=== PATIENT | female | born 1935 | race Caucasian/White ===

== ENCOUNTER 2017-12-04 12:47 | Inpatient (IN) | payer OTHER, MEDICARE ==
[~2017-12-04] VITALS: Ht 165.1 cm; Wt 106.4 kg
--- NOTE | ~2017-12-04 | CATHLAB ---
[facility] [address] [place] [address] INVASIVE PROCEDURE REPORT Name: REJI EDGAR Room #: 215-P ADM IN M.R.#: [id number] Admission: 12/04/17 Attend Phys: Rizwana Herzog Discharge: Date of : 35 Date of Service: 12/07/17 1653 Report #: [id number] THIS REPORT FOR: //name// APPROVED REPORT Study performed: 12/07/2017 12:54:41 Patient Details Patient Status: In-Patient Room #: The patient is a 82 year-old female Event Personnel Taran Valentino Wiener Packer, Cole Rojas RN, Karen Patton Sandifer, David Monitor Procedures Performed Art Access - R femoral artery* Left Heart Cath w/or w/o Coronaries [id number] [facility] [id number] Initial Mod Sed Same Phys/QHP Gr5y [id number] Hemostasis with Manual pressure Indication Dyspnea, Cardiomyopathy, Chest pain Risk Factors Hypercholesterolemia, Hypertension Procedure Narrative The patient was brought urgently to the Cardiac Catheterization Laboratory and was prepped and draped in a sterile manner. The Right Groin^ was infiltrated with 1% Lidocaine subcutaneous anesthesia. A PINNACLE 4FR Sheath #[id number] sheath was inserted into the RFA^. Coronary angiography was performed using coronary diagnostic catheters. The right coronary system was accessed and visualized with a JR 4 catheter. The left coronary system was accessed and visualized with a JL 4 catheter. The left ventricle was accessed and visualized with a Pigtail catheter. Left ventricular/Aortic Valve gradient assessed via catheter pullback. Left ventriculogram was performed in GUZMAN projection. Hemostasis was obtained with manual pressure following sheath removal without any complications. The patient tolerated the procedure well and there were no complications associated with the procedure. There was no hematoma. Intraoperative Conscious Sedation Sedation start time: 13:40 Case end Time: 14:10 [facility] [place] [address] INVASIVE PROCEDURE REPORT Name: REJI EDGAR Room #: 215-P ADM IN M.R.#: [id number] Admission: 12/04/17 Attend Phys: Rizwana Herzog Discharge: Date of : 35 Date of Service: 12/07/17 1653 Report #: [id number] Fentanyl 50 mcg Versed 1.5 mg Fluoro Time: 1.27 minutes Dose: DAP 02752 cGycm2 314 mGy Contrast Type and Amount: Omnipaque 85 ml Coronary Angiography The patient's coronary anatomy is co- dominant. Diagnostic Cath Left Main Patent vessel, appears angiographically normal. LAD Moderate size caliber vessel, traveling down the anterior wall and wrapping around the apex. Appears angiographically normal. Circumflex Codominant vessel, with no flow-limiting lesions. OM1 Patent vessel, with no flow-limiting lesions. Right Coronary Patent vessel, with no flow-limiting lesions. R PDA Small-caliber vessel, with no flow-limiting lesions. Ramus Patent vessel, with no flow-limiting lesions. Left Ventriculography The left ventricle is mildly dilated in size with decreased contractility. The left ventricular ejection fraction is estimated to be 35-40%. Hemodynamics The aortic pressure is 140/66 mmHg with a mean of 91 mmHg. The left ventricular pressure is 120/10 mmHg with a mean of mmHg. The left ventricular end diastolic pressure is 21 mmHg. Conclusion 1. Nonischemic cardiomyopathy. 2. Patent morongo coronaries, with no flow-limiting lesions. 3. Recommend medical therapy. <ELECTRONICALLY SIGNED> By: Taran Valentino MD 12/07/17 [phone] 52 Taran Valentino MD /INF
--- NOTE | ~2017-12-04 | EKG ---
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 : 1935 Requested By: Dewayne Aggarwal Order Number: [id number] MD: Taran Valentino Measurements Intervals [place] Rate: 71 P: 45 [place]: 189 QRS: 6 QRSD: 179 T: 187 QT: 461 QTc: 502 Interpretive Statements Sinus rhythm LVH with secondary repolarization abnormality nonspecific IVCD, atypical left bundle branch block pattern Compared to ECG 11/15/2009 13:10:57 Left ventricular hypertrophy now present Early repolarization now present Prolonged QT interval now present Electronically Signed On 12-05-2017 11:04:40 CDT by Taran Valentino [email or web address] <ELECTRONICALLY SIGNED> By: Taran Valentino MD 12/05/17 1104 1300 1300 Taran Valentino MD /MYLENE
--- NOTE | ~2017-12-04 | HC ---
[facility] [place] [address] CONSULTATION Name: REJI EDGAR Room #: 215-P [facility] IN M.R.#: [id number] Admission: 12/04/17 Attend Phys: Juvenal Robledo MD Discharge: Date of : 35 Report #: [id number] THIS REPORT FOR: //name// CC: Juvenal Dumont Gabriela DATE OF SERVICE: 12/05/2017 INDICATION: Chest pain and shortness of breath. HISTORY OF PRESENT ILLNESS: This is a pleasant 82-year-old female who [facility] at [facility], presenting with left hand and chest discomfort. For the past several days, she has been very active. In the past, she had issues with the right hand due to carpal tunnel syndrome. She then developed severe pain and numbness in her left hand, unable to open up her fingers. She rested and gradually it improved. However, she developed substernal chest tightness that radiated to the back. She had some dyspnea as well. There is no history of fever, nausea or diarrhea. In the ER, she was given Lasix, but she felt better. Although, the patient reports that this did not increase urination. There is no history of PND or orthopnea. PAST MEDICAL HISTORY: Hypertension, TIA, arthritis. ALLERGIES: CODEINE, PENICILLIN, AND SULFA. MEDICATIONS: Include hydrochlorothiazide, Levoxyl, aspirin and Tylenol. REVIEW OF SYSTEMS: A full 10-point review of systems is performed. Only the pertinent positives and negatives are described in the HPI. PHYSICAL EXAMINATION: VITAL SIGNS: Blood pressure 120/60, heart rate is 65 beats per minute. GENERAL APPEARANCE: A well-developed, well-nourished female, in no acute respiratory distress. HEAD AND EYES: Normocephalic. Sclerae anicteric. ENT: Oral mucosa moist. NECK: Supple. LUNGS: Clear to auscultation. CARDIAC: Regular rate and rhythm, S1 and S2 positive. ABDOMEN: Soft, nontender. Bowel sounds positive. EXTREMITIES: No cyanosis, trace edema. NEUROLOGIC: Alert and oriented x 3 ECG reveals sinus rhythm with a wide complex, may be atypical left bundle branch block. [facility] [address] [place] [address] CONSULTATION Name: REJI EDGAR Room #: 215-P ADM IN M.R.#: [id number] Admission: 12/04/17 Attend Phys: Juvenal Robledo MD Discharge: Date of : 35 Report #: [id number] LABORATORY VALUES: Serial troponin levels are negative x 3. ASSESSMENT AND PLAN: 1. Chest pain syndrome, serial troponin levels are negative. However, the EKG is abnormal, probable atypical left bundle branch block. She has intermittent chest discomfort, may be musculoskeletal versus GI. However, ischemia cannot be ruled out. We will arrange for noninvasive stress testing during this hospitalization. 2. Dyspnea, the etiology is unclear. No evidence for pneumonia on chest x-ray. We will require an echo. 3. Hypertension, continue with hydrochlorothiazide. 4. Edema, continue with the diuretic. Thank you for allowing me to participate in the care of your patient. <ELECTRONICALLY SIGNED> By: Taran Valentino MD 12/06/17 0854 0944 1104 Taran Valentino MD /nt
--- NOTE | ~2017-12-04 | H ---
[facility] [place] [address] HISTORY AND PHYSICAL Name: REJI EDGAR Room #: 215-P ADM IN M.R.#: [id number] Admission: 12/04/17 Attend Phys: Juvenal Robledo MD Discharge: Date of : 35 Report #: [id number] THIS REPORT FOR: //name// CC: Juvenal Dumont Gabriela DATE OF SERVICE: 12/04/2017 CHIEF COMPLAINT: Chest pressure and shortness of breath. HISTORY OF PRESENT ILLNESS: The patient is an 82-year-old female from [facility] area who came to the ER with some chest pressure. She said for the last 3 days, she has been very active, involved in several group activities at the facility, and she has noted symptoms of chest pressure and shortness of breath. She said with walking or just her daily routine, she often felt like she had to gasp or take a deep breath. She said sometimes it was harder sensation. She could not get a deep breath with activity. This also led to some symptoms of some chest pressure. Yesterday, she experienced pain in her left wrist that she felt was radiating up her arm, and she was concerned that she may be having a heart attack and was directed to the Emergency Room. So far, initial troponin was negative and EKG revealed LVH. She does report some chronic wrist pain, may be arthritic in nature, for which she used to take Aleve. Overnight, she said her symptoms have completely resolved, her left wrist pain is much better after one dose of meloxicam. She has no symptoms of shortness of breath after receiving some Lasix. Initial BNP was 500 and near 1100 this morning, although a chest x-ray does not show pulmonary edema. PAST MEDICAL HISTORY: Hypertension, arthritis. History of breast cancer and hypothyroidism. PAST SURGICAL HISTORY: Left mastectomy for breast cancer, right humerus fracture repair, laparoscopic cholecystectomy. FAMILY HISTORY: Noncontributory. SOCIAL HISTORY: No chronic alcohol or tobacco use. ALLERGIES: CODEINE, PENICILLIN AND SULFA. MEDICATIONS: Tylenol, Aleve, aspirin, calcium, hydrochlorothiazide, Levoxyl, B12. REVIEW OF SYSTEMS: She denies headache, chest pain, shortness of breath, headache, chest pain, nausea, vomiting, diarrhea, constipation, dysuria, syncope, falls. [address] [address] HISTORY AND PHYSICAL Name: REJI EDGAR Room #: [address] [place] [address] IN M.R.#: [id number] Admission: 12/04/17 Attend Phys: Juvenal Robledo MD Discharge: Date of : 35 Report #: [id number] OBJECTIVE: VITAL SIGNS: Temperature 36.5, pulse 57, respirations 17, blood pressure 118/48, O2 sat 97% on room air. GENERAL: She is awake and alert, in no distress. HEAD AND NECK: Unremarkable. LUNGS: Clear. HEART: Regular. ABDOMEN: Soft, normoactive bowel sounds. EXTREMITIES: No edema. She has some tenderness at the base of the left thumb and wrist. There is no redness or swelling. NEUROLOGIC: She is alert and oriented. Cranial nerves intact. Global strength intact LABORATORY REVIEW: As mentioned, chest x-ray was clear. Basic chemistry unremarkable. BNP this morning was 1200. Urinalysis negative. ASSESSMENT: 1. Chest pressure. 2. Dyspnea on exertion. 3. Hypokalemia, resolved. 4. Osteoarthritis of the left wrist. PLAN: This does not seem like acute coronary syndrome, and I question whether there could be a degree of diastolic dysfunction given the elevated BNP. Overnight, she received Lasix and said her chest symptoms are resolved. Echocardiogram has been ordered. I have asked Cardiology to review that today. X-ray and uric acid to study the left wrist. She may need adjustment in her diuretic regimen. If stable and no other interventions necessary, then she could be discharged early tomorrow. <ELECTRONICALLY SIGNED> By: Juvenal Robledo MD 12/07/17 1342 0847 0916 Juvenal Robledo MD /nt
--- NOTE | ~2017-12-04 | 2DMMODE ---
[facility] [address] [place] [address] 2 D/M-MODE ECHOCARDIOGRAM Name: REJI EDGAR Room #: 215-P ADM IN M.R.#: [id number] Admission: 12/04/17 Attend Phys: Rizwana Herzog Discharge: Date of : 35 Date of Service: 12/06/17 0827 Report #: [id number] THIS REPORT FOR: //name// APPROVED REPORT Study performed: 12/05/2017 11:48:05 EXAM: Comprehensive 2D, Doppler, and color-flow Echocardiogram Patient Location: Bedside Room #: [facility] Status: on-call BSA: 2.10 HR: 57 bpm BP: 118/48 mmHg Rhythm: NSR Other Information Study Quality: Good Indications Chest Pressure Dyspnea Left arm pain. 2D Dimensions LVEF(%): 45.99 (>50%) IVSd: 12.26 (7-11mm) LVOT Diam: 20.00 (18-24mm) LVDd: 56.77 mm PWd: 11.51 (7-11mm) Ascending Ao: 25.57 (22-36mm) LVDs: 43.56 (25-40mm) Aortic Root: 27.41 mm LV Single Plane 4CH: 46.69 % LV Single Plane 2CH: 52.66 % Griggs's LVEF: 49.67 % Biplane EF: 47.3 % Volumes Left Atrial Volume (Systole) Single Plane 4CH: 37.12 mL Single Plane 2CH: 26.72 mL LA ESV Index: 16.00 mL/m2 Aortic Valve AoV Peak Buddy.: 1.52 m/s AO Peak Gr.: 9.21 mmHg LVOT Max P.47 mmHg LVOT Max V: 1.17 m/s DESIRAE Vmax: 2.32 cm2 [facility] [place] [address] 2 D/M-MODE ECHOCARDIOGRAM Name: EDGARREJI Room #: 215-P ADM IN M.R.#: [id number] Admission: 12/04/17 Attend Phys: Rizwana Herzog Discharge: Date of : 35 Date of Service: 12/06/17 0827 Report #: [id number] AI Vmax: 3.80 m/s AI [place]: 0.87 m/s2 AI PHT: 1269.05 ms Mitral Valve E/A Ratio: 0.6 MV Decel. Time: 363.79 ms MV E Max Buddy.: 0.59 m/s MV A Buddy.: 0.92 m/s MV PHT: 105.50 ms IVRT: 92.27 ms TDI E/Lateral E': 9.83 E/Medial E': 14.75 Medial E' Buddy.: 0.04 m/s Lateral E' Buddy.: 0.06 m/s Pulmonary Valve PV Peak Buddy.: 1.15 m/s PV Peak Gr.: 5.33 mmHg Pulmonary Vein P Vein S: 0.56 m/s P Vein A: 0.25 m/s P Vein D: 0.37 m/s P Vein A Dur.: 147.6 msec P Vein S/D Ratio: 1.51 Tricuspid Valve TR Peak Buddy.: 2.23 m/s RAP Estimate: 7.00 mmHg TR Peak Gr.: 19.90 mmHg PA Pressure: 27.00 mmHg Left Ventricle The left ventricle is normal size. There is normal LV segmental wall motion. Borderline concentric left ventricular hypertrophy. Left ventricular systolic function is moderately decreased. LVEF is 35-40%. Grade I - abnormal relaxation pattern. Right Ventricle The right ventricle is normal size. The right ventricular systolic function is normal. Atria The left atrium size is normal. The right atrium size is normal. Aortic Valve The Aortic valve is sclerotic. Mild aortic regurgitation. There is no [facility] [address] [address] 2 D/M-MODE ECHOCARDIOGRAM Name: REJI EDGAR Room #: 215-P [facility] IN .R.#: [id number] Admission: 12/04/17 Attend Phys: Rizwana Herzog Discharge: Date of : 35 Date of Service: 12/06/17 0827 Report #: [id number] aortic valvular stenosis. Mitral Valve There is mild mitral annular calcification. Mild mitral regurgitation. No evidence of mitral valve stenosis. Tricuspid Valve The tricuspid valve is normal in structure. Mild tricuspid regurgitation. Pulmonary artery pressure is 27 mmHg. Pulmonic Valve The pulmonary valve is normal in structure. There is no pulmonic valvular regurgitation. Great Vessels The aortic root is normal in size. IVC is normal in size and collapses >50% with inspiration. Pericardium There is no pericardial effusion. <Conclusion> The left ventricle is normal size. Left ventricular systolic function is moderately decreased. Grade I - abnormal relaxation pattern. The right ventricle is normal size. The left atrium size is normal. The Aortic valve is sclerotic. Mild aortic regurgitation. Mild mitral regurgitation. Mild tricuspid regurgitation. Pulmonary artery pressure is 27 mmHg. <ELECTRONICALLY SIGNED> By: Taran Valentino MD 12/06/17826 6 6 Taran Valentino MD /INF
[~2017-12-04 12:47] MED LIST: ADULT LOW DOSE81 MG PO; CENTRUM TABLET1 TAB PO; FEMARA2.5 MG PO; VICODIN 5-5001 EACH PO
[2017-12-04 12:50] VITALS: BP 155/70
[2017-12-04 13:37] LABS: HEMATOCRIT 38.2 % (37.0-47.0); HEMOGLOBIN 13.3 gm/dL (12.0-15.0); MCH 29.9 pg (26.0-34.0); MCHC 34.8 g/dL (28.0-37.0); MCV 85.8 fL (80.0-100.0); PLATELET COUNT 241 thou/uL (150-400); RBC 4.45 mil/uL (4.20-5.00); RDW 14.7 % (10.5-14.5); WBC 8.2 thou/uL (4.0-11.0)
[2017-12-04 13:52] LABS: ANION GAP 6 mmol/L (7-16); BUN 13 mg/dL (7-18); CHLORIDE 99 mmol/L (98-107); CO2 30 mmol/L (21-32); CREATININE 0.8 mg/dL (0.6-1.0); GLUCOSE 98 mg/dL (74-106); POTASSIUM 3.4 mmol/L (3.5-5.1); SODIUM 135 mmol/L (136-145)
[2017-12-04 14:00] LABS: TROPONIN-I <0.06 ng/mL (<0.06)
[2017-12-04 14:03] LABS: ABSOLUTE NEUTROPHILS 5.5 thou/uL (1.4-8.2); PLATELET ESTIMATE NORMAL
[2017-12-04] MEDS ORDERED: ASPIRIN325 PO (15:38)
[2017-12-04] MEDS ORDERED: ALEVE220 MG PO (15:38)
[2017-12-04] MEDS ORDERED: TYLENOL325 M1 PO (15:38)
[2017-12-04] MEDS ORDERED: TUMS PO (15:44)
[2017-12-04] MEDS ORDERED: [UNRECOGNIZED DRUG - OTHER] TOP (15:44)
[2017-12-04] MEDS ORDERED: HYDROCHLOROTH12.5 M1 PO (15:45)
[2017-12-04] MEDS ORDERED: SYNTHROID175 MCG PO (15:46)
[2017-12-04] MEDS ORDERED: SYSTANE 0.3-0.1 EACH OPHTHALMIC (15:46)
[2017-12-04] MEDS ORDERED: VITAMIN B-12500 MCG PO (15:47)
[2017-12-04 15:48] VITALS: BP 155/70
[2017-12-04 16:43] VITALS: BP 156/77
[2017-12-04 17:46] VITALS: BP 157/60
[2017-12-04 19:19] VITALS: BP 153/60
[2017-12-04 22:42] LABS: URINE BILIRUBIN NEGATIVE (Negative); URINE BLOOD NEGATIVE (Negative); URINE CLARITY CLEAR; URINE COLOR YELLOW; URINE GLUCOSE-RANDOM* NEGATIVE (Negative); URINE KETONES NEGATIVE (Negative); URINE LEUKOCYTES-REFLEX NEGATIVE (Negative); URINE NITRITE-REFLEX NEGATIVE (Negative); URINE PROTEIN (DIPSTICK) NEGATIVE (Negative); URINE UROBILINOGEN 0.2 E.U./dl (0.2-1.0)
[2017-12-04 23:15] VITALS: BP 146/66
[2017-12-05 04:45] LABS: CALCIUM 8.8 mg/dL (8.5-10.1); CREATININE 0.9 mg/dL (0.6-1.0); POTASSIUM 3.9 mmol/L (3.5-5.1)
[2017-12-05 04:58] VITALS: BP 118/48
[2017-12-05 07:53] VITALS: BP 117/54
[2017-12-05 12:11] VITALS: BP 124/51
[2017-12-05 16:03] VITALS: BP 135/47
[2017-12-05 20:45] VITALS: BP 143/50
[2017-12-06 04:35] VITALS: BP 146/48
[2017-12-06 07:51] VITALS: BP 139/68
[2017-12-06 10:44] LABS: HEMATOCRIT 41.4 % (37.0-47.0); HEMOGLOBIN 13.9 gm/dL (12.0-15.0); MCH 29.3 pg (26.0-34.0); MCHC 33.5 g/dL (28.0-37.0); MCV 87.4 fL (80.0-100.0); RBC 4.74 mil/uL (4.20-5.00); RDW 14.7 % (10.5-14.5); WBC 7.1 thou/uL (4.0-11.0)
[2017-12-06 11:01] LABS: PROTIME 10.6 Seconds (9.3-11.4)
[2017-12-06 11:50] VITALS: BP 147/66
[2017-12-06 16:03] VITALS: BP 147/64
[2017-12-06 20:55] VITALS: BP 143/56
[2017-12-07 04:50] VITALS: BP 151/64
[2017-12-07 07:51] VITALS: BP 142/74
[2017-12-07 11:08] LABS: CALCIUM 9.6 mg/dL (8.5-10.1); CREATININE 0.8 mg/dL (0.6-1.0); POTASSIUM 4.1 mmol/L (3.5-5.1)
[2017-12-07 11:19] VITALS: BP 157/84
[2017-12-07 15:25] VITALS: BP 135/54
[2017-12-07 17:11] VITALS: BP 135/54
== END 2017-12-07 19:40 | disposition home or self-care (01) | DRG 287 ==
LOC: ER 12:47 → 2N 15:24 → EROBS 15:24 → 2N 16:38
PROVIDERS: Internal Medicine Cardiovascular Disease; Internal Medicine Geriatric Medicine; Physician Assistant
DX: R07.89 Other chest pain (principal); I42.9 Cardiomyopathy, unspecified; E78.00 Pure hypercholesterolemia, unspecified; E03.9 Hypothyroidism, unspecified; E87.6 Hypokalemia; R06.00 Dyspnea, unspecified; M19.032 Primary osteoarthritis, left wrist; I10 Essential (primary) hypertension; Z88.6 Allergy status to analgesic agent; Z88.0 Allergy status to penicillin; Z88.2 Allergy status to sulfonamides; Z88.8 Allergy status to other drugs, medicaments and biological substances; Z85.3 Personal history of malignant neoplasm of breast; Z90.12 Acquired absence of left breast and nipple; Z90.49 Acquired absence of other specified parts of digestive tract; Z86.73 Personal history of transient ischemic attack (TIA), and cerebral infarction without residual deficits; Z98.818 Other dental procedure status; Z79.82 Long term (current) use of aspirin; Z79.899 Other long term (current) drug therapy
CPT/HCPCS: 10081

== ENCOUNTER 2020-09-16 11:07 | Inpatient (IN) | payer OTHER ==
[~2020-09-16] VITALS: Ht 162.6 cm; Wt 118.0 kg
--- NOTE | ~2020-09-16 | EMS ---
[address] [address] EMS Patient Care Report Name: REJI EDGAR Room #: 455-P [facility] IN M.R.#: [id number] Admission: 09/16/20 Attend Phys: Isaac Youssef MD Discharge: 09/19/20 Date of : 35 Report #: [id number] THIS REPORT FOR: //name// Report Transmitted: 09/22/2020 06:41 EMS Care Summary [place], [place]/[facility] Incident [id number] @ 09/16/2020 10:29 Incident Location [address] Patient REJI EDGAR Female, 84 Years 1935 Patient Address [address] [place] [address] Patient History Hypertension (HTN),Hyperlipidemia,Gastro-Esophageal Reflux Disease (GERD),Breast Cancer,Osteoarthritis,Hypothyroidism, Patient Allergies Codeine,Latex allergy,Penicillin allergy,Sulfa,Adhesive Tape, Patient Medications Hydrochlorothiazide (Hctz), Levothyroxine, Potassium, Aspirin, Losartan, Calcium, Lasix, Claritin, Vitamin B12, Chief Complaint it's a little hard to breathe Disposition Transported [place] Reason Breathing Problem Transported To [facility] Narrative Called for SOB. Upon arrival, [place] staff reported the pt c/o chest pain and SOB. [address] [address] EMS Patient Care Report Name: REJI EDGAR Room #: [facility] IN M.R.#: [id number] Admission: 09/16/20 Attend Phys: Isaac Youssef MD Discharge: 09/19/20 Date of : 35 Report #: [id number] This was abnormal for her. Pt is BARR x 3 sitting in her chair in minor distress. She says she has had a little bit of CP and feels SOB. This has been going on for a little while and she would like to get checked out. She has had issues with edema in her legs, but that does not appear to be the case at this time. Pt moved to the EMS cot and loaded into the ambulance all w/o incident. Vitals obtained. 4 and 12 lead. Pt has some EKG abnormalities that appear to be a BBB. IV obtained. O2. ASA has a precaution. Vitals and 12 lead repeated. En route: pt said the O2 was helping. Pain has went away. RR to ER. Arrived: pt taken to ER #11 and moved to their bed w/o incident. Pt care & report to ER staff. Initial Vitals @10:51P: 107,SpO2: 97, @10:46P: 81,CO: 1,SpO2: 96, @10:49P: 78,SpO2: 95, @10:50P: 166,SpO2: 97, @10:47P: 78,SpO2: 97,MS Suspected: false @10:55P: 203,CO: 0,SpO2: 98, @11:05P: 156,SpO2: 98, @10:51P: 191,SpO2: 97, @10:58P: 156,SpO2: 98, @11:03P: 131,SpO2: 98, @11:05P: 173,SpO2: 97, @10:53P: 138,SpO2: 96, @10:56P: 192,SpO2: 98, @11:00P: 148,SpO2: 98, @10:47P: 77,R: 16,BP: 162/80,Pain: 2/10,GCS: 15,Glucose: 166,SpO2: 94,Revised Trauma: 12, @10:43P: 82,R: 18,BP: 150/73,Pain: 2/10,GCS: 15,SpO2: 97,Revised Trauma: 12, @11:06P: 108,R: 16,BP: 139/73,Pain: 0/10,GCS: 15,CO: 3,SpO2: 98,Revised Trauma: 12, @10:51P: 113,R: 16,BP: 143/84,Pain: 2/10,GCS: 15,SpO2: 98,Revised Trauma: 12, Assessments @10:38MENTAL:Person Oriented,Time Oriented,Event Oriented,Place Oriented,SKIN:Pale,HEENT:LUNG SOUNDS:General: Nausea,General: Diarrhea,General: Vomiting,ABDOMEN:General: Nausea,General: Diarrhea,General: Vomiting,PELVIS//GI:Pelvis GUOther,EXTREMITIES:Left Leg: Edema,Right Leg: Edema,Left Arm: No Abnormalities,Right Arm: No Abnormalities,PULSE:Radial: 2+ Normal,NEURO:No Abnormalities, Impression Acute Respiratory Distress (Dyspnea) Procedures @10:38ALS AssessmentResponse: UnchangedSucceeded@11:0512-Lead ECGResponse: [facility] [address] [place] [address] EMS Patient Care Report Name: REJI EDGAR Room #: 455-P [facility] IN M.R.#: [id number] Admission: 09/16/20 Attend Phys: Isaac Youssef MD Discharge: 09/19/20 Date of : 35 Report #: [id number] UnchangedFailed@10:4612-Lead ECGResponse: UnchangedSucceeded@10:4712-Lead ECGResponse: UnchangedSucceeded@10:49Saline Lock 8cc (18 ga) Site: Antecubital-RightResponse: UnchangedSucceeded@10:50Aspirin - 324 Milligrams (mg) - OralResponse: Unchanged@10:50Oxygen FlowRate: 4 Device: Nasal Cannula (NC) Response: ImprovedSucceeded@10:453-Lead ECGResponse: UnchangedSucceeded@10:41StretcherResponse: Unchanged Timeline 10:27,Call Received 10:27,Dispatch Notified 10:29,Dispatched 10:29,En Route 10:35,On Scene 10:38,At Patient 10:38,ALS Assessment,Response: UnchangedSucceeded, 10:41,Stretcher,Response: Unchanged 10:43,BP: 150/73 M,PULSE: 82,RR: 18 R,SPO2: 97 Ox,ETCO2: ,BG: ,PAIN: 2,GCS: 15, 10:45,3-Lead ECG,Response: UnchangedSucceeded, 10:46,12-Lead ECG,Response: UnchangedSucceeded, 10:46,BP: / M,PULSE: 81,RR: R,SPO2: 96 Ox,ETCO2: ,BG: ,PAIN: ,GCS: , 10:47,12-Lead ECG,Response: UnchangedSucceeded, 10:47,BP: / M,PULSE: 78,RR: R,SPO2: 97 Ox,ETCO2: ,BG: ,PAIN: ,GCS: , 10:47,BP: 162/80 M,PULSE: 77,RR: 16 R,SPO2: 94 Ox,ETCO2: ,B,PAIN: 2,GCS: 15, 10:49,Saline Lock 8cc 18 ga Site: Antecubital-Right,Response: UnchangedSucceeded, 10:49,BP: / M,PULSE: 78,RR: R,SPO2: 95 Ox,ETCO2: ,BG: ,PAIN: ,GCS: , 10:50,BP: / M,PULSE: 166,RR: R,SPO2: 97 Ox,ETCO2: ,BG: ,PAIN: ,GCS: , 10:50,Aspirin - 324 Milligrams (mg) - Oral,Response: Unchanged 10:50,Oxygen FlowRate: 4 Device: Nasal Cannula (NC) Response: ImprovedSucceeded, 10:51,BP: / M,PULSE: 107,RR: R,SPO2: 97 Ox,ETCO2: ,BG: ,PAIN: ,GCS: , 10:51,BP: 143/84 M,PULSE: 113,RR: 16 R,SPO2: 98 Ox,ETCO2: ,BG: ,PAIN: 2,GCS: 15, 10:51,BP: / M,PULSE: 191,RR: R,SPO2: 97 Ox,ETCO2: ,BG: ,PAIN: ,GCS: , 10:53,BP: / M,PULSE: 138,RR: R,SPO2: 96 Ox,ETCO2: ,BG: ,PAIN: ,GCS: , 10:54,Depart Scene 10:55,BP: / M,PULSE: 203,RR: R,SPO2: 98 Ox,ETCO2: ,BG: ,PAIN: ,GCS: , 10:56,BP: / M,PULSE: 192,RR: R,SPO2: 98 Ox,ETCO2: ,BG: ,PAIN: ,GCS: , 10:58,BP: / M,PULSE: 156,RR: R,SPO2: 98 Ox,ETCO2: ,BG: ,PAIN: ,GCS: , 11:00,BP: / M,PULSE: 148,RR: R,SPO2: 98 Ox,ETCO2: ,BG: ,PAIN: ,GCS: , 11:03,BP: / M,PULSE: 131,RR: R,SPO2: 98 Ox,ETCO2: ,BG: ,PAIN: ,GCS: , 11:05,At Destination 11:05,BP: / M,PULSE: 156,RR: R,SPO2: 98 Ox,ETCO2: ,BG: ,PAIN: ,GCS: , 11:05,12-Lead ECG,Response: UnchangedFailed, 11:05,BP: / M,PULSE: 173,RR: R,SPO2: 97 Ox,ETCO2: ,BG: ,PAIN: ,GCS: , 11:06,BP: 139/73 M,PULSE: 108,RR: 16 R,SPO2: 98 Ox,ETCO2: ,BG: ,PAIN: 0,GCS: [facility] [address] [place] [address] EMS Patient Care Report Name: REJI EDGAR Room #: 455-P [facility] IN M.R.#: [id number] Admission: 09/16/20 Attend Phys: Isaac Youssef MD Discharge: 09/19/20 Date of : 35 Report #: [id number] 15, 11:35,Call Closed Disclaimer v1.1 Copyright 2020 [employer] This EMS Care Summary contains data elements from the applicable legal record (which may be displayed differently). It is designed to provide pertinent information for the following purposes: continuity of care, clinical quality, and state data reporting. The complete legal record is available to ED staff and administrators of the receiving hospital in [employer]'s Patient Tracker. All data is provided "as is."
[~2020-09-16 11:07] MED LIST changes: +ALEVE220 MG PO; +ASPIRIN325 PO; +HYDROCHLOROTH12.5 M1 PO; +SYNTHROID175 MCG PO; +SYSTANE 0.3-0.1 EACH OPHTHALMIC; +TUMS PO; +TYLENOL325 M1 PO; +VITAMIN B-12500 MCG PO; +[UNRECOGNIZED DRUG - OTHER] TOP
[2020-09-16 11:12] VITALS: BP 161/61
[2020-09-16 11:26] LABS: ABSOLUTE NEUTROPHILS 4.5 thou/uL (1.4-8.2); BASOPHILS 1.3 % (0.0-2.0); EOSINOPHILS 1.9 % (0.0-3.0); HEMATOCRIT 36.7 % (37.0-47.0); HEMOGLOBIN 12.3 gm/dL (12.0-15.0); LYMPHOCYTES 25.4 % (24.0-44.0); MCH 29.4 pg (26.0-34.0); MCHC 33.5 g/dL (28.0-37.0); MCV 87.7 fL (80.0-100.0); MONOCYTES 9.6 % (1.0-8.0); PLATELET COUNT 297 thou/uL (150-400); POLYS 61.8 % (36.0-66.0); RBC 4.18 mil/uL (4.20-5.00); RDW 14.8 % (10.5-14.5); WBC 7.3 thou/uL (4.0-11.0)
[2020-09-16 11:28] LABS: ANION GAP 7 mmol/L (7-16); BUN 20 mg/dL (7-18); CALCIUM 9.1 mg/dL (8.5-10.1); CHLORIDE 98 mmol/L (98-107); CO2 29 mmol/L (21-32); GLUCOSE 111 mg/dL (74-106); POTASSIUM 3.5 mmol/L (3.5-5.1); SODIUM 134 mmol/L (136-145)
[2020-09-16 11:35] LABS: APTT 23.6 Seconds (24.5-32.8); D-DIMER 0.63 ug/mLFEU (0.19-0.50); PROTIME 10.9 Seconds (9.3-11.4)
[2020-09-16 11:39] LABS: ALBUMIN 3.5 g/dL (3.4-5.0); LIPASE 164 U/L (73-393); SGOT 12 U/L (15-37); SGPT 17 U/L (14-59); TOTAL BILIRUBIN 0.3 mg/dL (0.2-1.0); TOTAL PROTEIN 7.4 g/dL (6.4-8.2); TROPONIN-I <0.06 ng/mL (<0.06)
[2020-09-16] MEDS ORDERED: TRAMADOL 50 MG50 MG PO (11:51)
[2020-09-16 12:31] LABS: URINE BILIRUBIN NEGATIVE (Negative); URINE BLOOD NEGATIVE (Negative); URINE CLARITY CLEAR; URINE COLOR YELLOW; URINE GLUCOSE-RANDOM* NEGATIVE (Negative); URINE KETONES NEGATIVE (Negative); URINE NITRITE-REFLEX NEGATIVE (Negative); URINE PROTEIN (DIPSTICK) NEGATIVE (Negative); URINE SPECIFIC GRAVITY 1.015 (1.005-1.035); URINE UROBILINOGEN 0.2 E.U./dl (0.2-1.0)
[2020-09-16 12:35] LABS: URINE LEUKOCYTES-REFLEX 1+ (Negative)
[2020-09-16 12:43] LABS: BACTERIA-REFLEX None Seen /HPF (None Seen); CASTS None Seen /LPF (None Seen); CRYSTALS None Seen /LPF (None Seen); SQUAMOUS 0-3 Few /LPF (0-3); URINE RBC 1-2 Rare /HPF (NONE SEEN); URINE WBC-REFLEX 0-5 Rare /HPF (0-5)
[2020-09-16 13:53] VITALS: BP 162/64
[2020-09-16 14:34] VITALS: BP 145/60
[2020-09-16 15:15] VITALS: BP 148/75
--- NOTE | 2020-09-16 18:15 | NUR ---
AAOX4. CALM, COOPERATIVE. ORIENTED TO UNIT, FALL PRECAUTIONS.
[2020-09-16 20:49] VITALS: BP 146/68
[2020-09-16] MEDS ORDERED: FUROSEMIDE 20 M20 MG PO (21:49)
[2020-09-16] MEDS ORDERED: KLOR-CON 10 ER10 MEQ PO (21:51)
[2020-09-16] MEDS ORDERED: COZAAR 25 MG TA25 M2 PO (21:51)
[2020-09-16] MEDS ORDERED: HYDROCHLOROTH12.5 M2 PO (21:54)
[2020-09-16] MEDS ORDERED: CLARITIN10 M3 PO (21:57)
[2020-09-17 00:46] VITALS: BP 130/44
[2020-09-17 04:53] LABS: ABSOLUTE NEUTROPHILS 4.5 thou/uL (1.4-8.2); EOSINOPHILS 1.8 % (0.0-3.0); HEMATOCRIT 34.8 % (37.0-47.0); HEMOGLOBIN 11.5 gm/dL (12.0-15.0); LYMPHOCYTES 23.6 % (24.0-44.0); MCH 28.9 pg (26.0-34.0); MCHC 33.2 g/dL (28.0-37.0); MCV 87.2 fL (80.0-100.0); MONOCYTES 11.4 % (1.0-8.0); PLATELET COUNT 282 thou/uL (150-400); POLYS 62.2 % (36.0-66.0); RBC 3.99 mil/uL (4.20-5.00); RDW 14.7 % (10.5-14.5); WBC 7.2 thou/uL (4.0-11.0)
[2020-09-17 05:08] VITALS: BP 122/61
[2020-09-17 05:08] LABS: CHOLESTEROL 183 mg/dL (<200); HDL CHOLESTEROL 41 mg/dL (>40); LDL CHOLESTEROL 115 mg/dL (<100); TC:HDL 4.5 Ratio (Not establshd); TRIGLYCERIDE 135 mg/dL (<150); VLDL 27 mg/dL (<40)
[2020-09-17 05:11] LABS: SERUM ASSESSMENT Clear
[2020-09-17 05:20] LABS: ANION GAP 7 mmol/L (7-16); BUN 15 mg/dL (7-18); CALCIUM 8.8 mg/dL (8.5-10.1); CHLORIDE 99 mmol/L (98-107); CO2 27 mmol/L (21-32); CREATININE 0.9 mg/dL (0.6-1.0); GLUCOSE 105 mg/dL (74-106); MAGNESIUM 1.6 mg/dL (1.8-2.4); POTASSIUM 3.6 mmol/L (3.5-5.1); SODIUM 133 mmol/L (136-145); TROPONIN-I <0.06 ng/mL (<0.06)
--- NOTE | 2020-09-17 06:21 | NUR ---
ASSUMED PT CARE AT CHANGE OF SHIFT, AWAKE, ALERT AND ORIENTED, DENIES CHEST PAIN OR SOB, ASSESSMENTS CHARTED, TYL GIVEN FOR HEADACHE WITH RELIEF, OTHER MEDS GIVEN PER MAR, MED REC DONE, NO NEEDS AT THIS TIME, WILL PASS ON REPORT
--- NOTE | 2020-09-17 07:02 | EKG ---
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1935 Requested By: Chilo Trejo Order Number: [id number] MD: Mj Reyes Measurements Intervals [place] Rate: 73 P: -17 SC: 218 QRS: 3 QRSD: 180 T: 179 QT: 439 QTc: 484 Interpretive Statements Sinus rhythm Borderline prolonged SC interval Left atrial enlargement Left bundle branch block Compared to ECG 12/04/2017 13:00:21 Atrial abnormality now present Left ventricular hypertrophy no longer present Early repolarization no longer present Intraventricular conduction delay no longer present Electronically Signed On 09-17-2020 7:01:58 CDT by Mj Reyes [email or web address] <ELECTRONICALLY SIGNED> By: Mj Reyes MD, FACC 09/17/20 0701 1113 1113 Mj Reyes MD, [facility] /EPI
--- NOTE | 2020-09-17 11:12 | NUR ---
Consult # [id number] was completed by gavi tiradolain on 09/17/2020.
[2020-09-17 11:18] VITALS: BP 126/74
[2020-09-17 12:02] VITALS: BP 115/59
--- NOTE | 2020-09-17 13:44 | 2DMMODE ---
[facility] [place] [address] 2 D/M-MODE ECHOCARDIOGRAM Name: REJI EDGAR Room #: 218-P ADM IN M.R.#: [id number] Admission: 09/16/20 Attend Phys: Isaac Youssef MD Discharge: Date of : 35 Report #: [id number] THIS REPORT FOR: cc: Tim Ochoa MD, Stany A. MD Park, Jin S. MD ~ APPROVED REPORT Study performed: 09/17/2020 10:55:23 EXAM: Comprehensive 2D, Doppler, and color-flow Echocardiogram Patient Location: Bedside Room #: 218 Status: routine BSA: 2.17 HR: 85 bpm BP: 122/61 mmHg Rhythm: LBBB Other Information Study Quality: Adequate Indications Cardiomyopathy Hypertension/HDD HLD, Hx TIA 2D Dimensions RVDd: 36.23 mm IVSd: 14.61 (7-11mm) LVOT Diam: 20.31 (18-24mm) LVDd: 41.31 mm PWd: 14.62 (7-11mm) Ascending Ao: 31.23 (22-36mm) LVDs: 31.39 (25-40mm) Aortic Root: 30.85 mm IVC: 9.00 mm Volumes Left Atrial Volume (Systole) Single Plane 4CH: 44.59 mL Single Plane 2CH: 15.33 mL LA ESV Index: 15.00 mL/m2 Aortic Valve AoV Peak Buddy.: 1.46 m/s AO Peak Gr.: 8.47 mmHg LVOT Max P.85 mmHg [facility] [address] [place] [address] 2 D/M-MODE ECHOCARDIOGRAM Name: EDGARREJI Room #: 218-P [facility] IN .R.#: [id number] Admission: 09/16/20 Attend Phys: Isaac Youssef MD Discharge: Date of : 35 Report #: [id number] LVOT Max V: 0.98 m/s DESIRAE Vmax: 2.18 cm2 AI Vmax: 4.34 m/s AI [place]: 3.02 m/s2 AI PHT: 416.70 ms Mitral Valve E/A Ratio: 0.6 MV Decel. Time: 140.56 ms MV E Max Buddy.: 0.79 m/s MV A Buddy.: 1.29 m/s MV PHT: 40.76 ms IVRT: 131.49 ms Pulmonary Valve PV Peak Buddy.: 1.42 m/s PV Peak Gr.: 8.07 mmHg Tricuspid Valve TR Peak Buddy.: 2.76 m/s RAP Estimate: 5.00 mmHg TR Peak Gr.: 30.47 mmHg PA Pressure: 35.00 mmHg Left Ventricle The left ventricle is normal size. Paradoxical septal motion consistent with conduction abnormality. Mild concentric left ventricular hypertrophy. Left ventricular systolic function is mild to moderately decreased. LVEF is 40-45%. Mild diastolic dysfunction is present (impaired relaxation pattern). Right Ventricle The right ventricle is normal size. The right ventricular systolic function is normal. Atria The left atrium size is normal. The right atrium size is normal. Aortic Valve Mild aortic valve sclerosis. Mild aortic regurgitation. There is no aortic valvular stenosis. Mitral Valve The mitral valve is normal in structure. There is no mitral valve regurgitation noted. No evidence of mitral valve stenosis. Tricuspid Valve [facility] [address] [place] [address] 2 D/M-MODE ECHOCARDIOGRAM Name: REJI EDGAR Room #: 218-P ADM IN M.R.#: [id number] Admission: 09/16/20 Attend Phys: Isaac Youssef MD Discharge: Date of : 35 Report #: [id number] The tricuspid valve is normal in structure. Trace to mild tricuspid regurgitation. PAP is estimated at 35 mmHg. Pulmonic Valve The pulmonary valve is normal in structure. There is no pulmonic valvular regurgitation. Great Vessels The aortic root is normal in size. IVC is normal in size and collapses >50% with inspiration. Pericardium There is no pericardial effusion. <Conclusion> The left ventricle is normal size. Mild concentric left ventricular hypertrophy. Left ventricular systolic function is mild to moderately decreased. Paradoxical septal motion consistent with conduction abnormality. The right ventricle is normal size. The left atrium size is normal. Mild aortic regurgitation. There is no mitral valve regurgitation noted. Trace to mild tricuspid regurgitation. PAP is estimated at 35 mmHg. <ELECTRONICALLY SIGNED> By: Taran Valentino MD 09/17/20 1343 [id number] 134 Taran Valentino MD /INF
[2020-09-17 15:10] VITALS: BP 131/60
[2020-09-17 20:15] VITALS: BP 131/64
[2020-09-18 04:30] LABS: CALCIUM 8.7 mg/dL (8.5-10.1); MAGNESIUM 2.1 mg/dL (1.8-2.4); POTASSIUM 3.8 mmol/L (3.5-5.1)
[2020-09-18 04:45] VITALS: BP 115/55
[2020-09-18 07:12] VITALS: BP 122/58
--- NOTE | 2020-09-18 14:41 | NUR ---
met with patient she resides at [facility] on first floor. Patient has a walker. She uses walker in hallway or community not in her apt. Therapy evals discharged patient. Plan return to [facility] at wa. Patient will need COVID test prior to return updated RB. SP with [facility] and updated on care.
[2020-09-18 15:09] VITALS: BP 141/76
--- NOTE | 2020-09-18 17:52 | NUR ---
ASSUMED CARE SHIFT CHANGE.ASSESSMENTS CHARTED.MEDS GIVEN. VSS. DENIES CHEST PAIN/SOB. PT NPO THIS AM FOR STRESS TEST. REFER TO RESULTS. PLAN FOR DC IN AM. PT TX TO 4WEST. REPORT GIVEN TO VJ SALGUERO. TELE REMOVED. PT LEFT LEFT UNIT WITH ALL BELOGINGS.
[2020-09-18 20:08] VITALS: BP 136/70
--- NOTE | 2020-09-19 04:22 | NUR ---
Assumed pt care at 1900. A/OX,very pleasant. VSS. C/o right knee pain r/t strokes medicated with Tylenol with relief reported. Up with SBA/RW to bathroom. Needs reminders to call for help before getting out of the bed. Fall precauitons implemented. SR/BBB on telemetry. Resting quietly at this time,will continue to monitor pt.
[2020-09-19 08:48] VITALS: BP 128/58
--- NOTE | 2020-09-19 11:51 | NUR ---
BPCI letter provided, patient lives at [facility] in LTC setting
--- NOTE | 2020-09-19 12:07 | NUR ---
CARE TEAM INDICATED THAT PT IS MEDICALLY STABLE TO DC HOME THIS DAY. PT RESIDES ON THE FIRST FLOOR OF [facility] [place] PT IS AWARE AND AGREEABLE WITH DC HOME THIS DAY. SHE INDICATED SHE NEEDED TRANSPORT HOME. CM CALLED AND NOTIFIED FACILITY UNIT NURSE OF PT'S ANTICPATED RETURN THEY ARE AWARE AND AGREEABLE TO RECEIVED HER BACK THIS DAY. CM ARRANGED [facility] FOR [phone] [employer]. CM NOTIFIED PT, UNIT, AND [facility] NURSE. CM PROVIDED NURSE HER WITH NUMBER FOR REPORT. CHART COPY MADE. ORDERS FAXED. NO OTHER CM INTERVENTION INDICATED. CASE CLOSED.
[2020-09-19] MEDS ORDERED: CIPRO500 M1 PO (12:08)
--- NOTE | 2020-09-19 13:09 | NUR ---
Assumed pt care this am VS stable. Is able to ambulate to the toilet with a walker and a gait belt and is steady on her feet. Diet and medications are tolerated well. Dc instructions given to the pt, prescriptions were sent to the pharmacy. Report given to RN in [facility]. Awaiting transport.
== END 2020-09-19 14:05 | DRG 292 ==
LOC: ER 11:07 → EROBS 13:12 → 2N 13:12 → 4W 13:12 → 2N 14:40 → 4W 09-18 17:51
PROVIDERS: Emergency Medicine; Nurse Practitioner; ADMIT Hospitalist; ATTEND Hospitalist
DX: I11.0 Hypertensive heart disease with heart failure (principal); N39.0 Urinary tract infection, site not specified; Z68.41 Body mass index [BMI] 40.0-44.9, adult; I50.23 Acute on chronic systolic (congestive) heart failure; I42.8 Other cardiomyopathies; R91.8 Other nonspecific abnormal finding of lung field; Z20.822 Contact with and (suspected) exposure to COVID-19; E78.5 Hyperlipidemia, unspecified; E89.0 Postprocedural hypothyroidism; E66.9 Obesity, unspecified; Z66 Do not resuscitate; F03.90 Unspecified dementia, unspecified severity, without behavioral disturbance, psychotic disturbance, mood disturbance, and anxiety; E83.42 Hypomagnesemia; R63.4 Abnormal weight loss; R53.81 Other malaise; Z90.49 Acquired absence of other specified parts of digestive tract; Z90.12 Acquired absence of left breast and nipple; Z86.73 Personal history of transient ischemic attack (TIA), and cerebral infarction without residual deficits; Z88.0 Allergy status to penicillin; Z88.2 Allergy status to sulfonamides; Z88.8 Allergy status to other drugs, medicaments and biological substances; Z88.6 Allergy status to analgesic agent; Z91.040 Latex allergy status; Z85.3 Personal history of malignant neoplasm of breast
CPT/HCPCS: 10045; 10081